=== PATIENT | female | born 1955 | race Caucasian/White ===

== ENCOUNTER 2022-08-27 13:04 | Emergency (ER) | payer MEDICARE ==
[2022-08-27] MEDS ORDERED: Sodium Chloride 0.9% 10 ML Syringe FLUSH PRN (13:37)
[2022-08-27 14:26] LABS: BASOPHILS ABSOLUTE AUTO 0.05 K/mm3 (0.01-0.08); BASOPHILS PERCENT AUTO 0.6 % (0.1-1.2); EOSINOPHILS ABSOLUTE AUTO 0.21 K/mm3 (0.04-0.36); EOSINOPHILS PERCENT AUTO 2.7 (0.7-5.8); HEMATOCRIT 38.7 % (34.1-44.9); HEMOGLOBIN 12.5 gm/dl (11.2-15.7); IMMATURE GRAN ABSOLUTE AUTO 0.01 K/mm3 (0.00-0.10); IMMATURE GRAN PERCENT AUTO 0.1 % (<=1.0); LYMPHOCYTES ABSOLUTE AUTO 2.76 K/mm3 (1.18-3.74); LYMPHOCYTES PERCENT AUTO 35.8 % (19.3-51.7); MEAN CORPUSCULAR HEMOGLOBIN 30.3 pg (25.6-32.2); MEAN CORPUSCULAR HGB CONC 32.3 g/dl (32.2-35.5); MEAN CORPUSCULAR VOLUME 93.9 fl (79.4-94.8); MEAN PLATELET VOLUME 8.8 fl (9.4-12.3); MONOCYTES ABSOLUTE AUTO 0.69 K/mm3 (0.24-0.36); MONOCYTES PERCENT AUTO 8.9 % (4.7-12.5); NEUTROPHILS PERCENT AUTO 51.9 % (34.0-71.1); PLATELET COUNT,PLT 278 K/mm3 (182-369); RED BLOOD CELL COUNT 4.12 M/mm3 (3.98-5.22); WHITE BLOOD CELL COUNT,WBC 7.72 K/mm3 (3.98-10.04)
[2022-08-27 14:55] LABS: A/G RATIO 1.1 (1-2); ALBUMIN 3.7 g/dl (3.4-5.0); ANION GAP 11.9 (5-15); BILIRUBIN TOTAL 0.5 mg/dL (0.2-1.0); BUN/CREATININE RATIO 22.5 (14-18); CREATININE 0.8 mg/dL (0.55-1.02); EST CRCL DRUG DOSING (CG) 52.9 mL/min; MAGNESIUM 2.1 mg/dL (1.8-2.4); POTASSIUM,K 3.9 mEq/L (3.5-5.1); PROTEIN TOTAL,TP 7.1 g/dl (6.4-8.2); TSH 0.497 uIU/mL (0.358-3.74)
== END 2022-08-27 16:10 | disposition home or self-care (01) ==
LOC: JD.ED 13:04
DX: R07.9 Chest pain, unspecified (principal); R51.9 Headache, unspecified; R00.2 Palpitations
CPT/HCPCS: 36415; 70450; 70450-26; 71045; 71045-26; 80053; 83735; 84443; 84484; 85025; 85379; 93005; 93246; 99285

== ENCOUNTER 2022-11-20 11:43 | Emergency (ER) | payer MEDICARE ==
[2022-11-20] MEDS ORDERED: Fluorescein 1 MG Ophth Strip EYEBOTH ONE (12:13)
[2022-11-20] MEDS ORDERED: Proparacaine 0.5% Ophth Soln 15 ML Bottle EYEBOTH ONE (12:15)
[2022-11-20] MEDS ORDERED: Ciprofloxacin 0.3% Ophth Soln 5 ML Bottle EYELF ONE (13:25)
== END 2022-11-20 13:50 | disposition home or self-care (01) ==
LOC: JD.ED 11:43
DX: S05.02XA Injury of conjunctiva and corneal abrasion without foreign body, left eye, initial encounter (principal); Z88.0 Allergy status to penicillin; X58.XXXA Exposure to other specified factors, initial encounter
CPT/HCPCS: 99283; A9270; J3490

== ENCOUNTER 2022-12-24 14:23 | Emergency (ER) | payer MEDICARE ==
[2022-12-24 15:43] LABS: BASOPHILS ABSOLUTE AUTO 0.1 K/mm3 (0.0-0.2); EOSINOPHILS ABSOLUTE AUTO 0.2 K/mm3 (0.0-0.4); EOSINOPHILS PERCENT AUTO 2.7 % (0.0-6.0); HEMATOCRIT 39.1 % (37.0-47.0); HEMOGLOBIN 13.2 gm/dl (12.0-16.0); IMMATURE GRAN ABSOLUTE AUTO 0.02 K/mm3 (0.00-0.05); IMMATURE GRAN PERCENT AUTO 0.3 % (0.0-0.4); LYMPHOCYTES ABSOLUTE AUTO 2.6 K/mm3 (1.0-4.8); LYMPHOCYTES PERCENT AUTO 43.7 % (24.0-44.0); MEAN CORPUSCULAR HEMOGLOBIN 31.1 pg (28.0-32.0); MEAN CORPUSCULAR HGB CONC 33.8 g/dl (32.0-36.0); MEAN PLATELET VOLUME 8.5 fl (9.4-12.3); MONOCYTES ABSOLUTE AUTO 0.6 K/mm3 (0.0-0.8); MONOCYTES PERCENT AUTO 9.4 % (0.0-8.0); NEUTROPHILS ABSOLUTE AUTO 2.6 K/mm3 (1.8-7.7); NEUTROPHILS PERCENT AUTO 42.9 % (41.0-71.0); PLATELET COUNT,PLT 258 K/mm3 (150-400); RED BLOOD CELL COUNT 4.25 M/mm3 (4.10-5.30); WHITE BLOOD CELL COUNT,WBC 5.95 K/mm3 (3.9-11.3)
[2022-12-24 16:04] LABS: INR 1.02; PROTHROMBIN TIME 10.9 SECONDS (9.7-12.0)
[2022-12-24 16:05] LABS: D-DIMER QUANTITATIVE 0.2 mg/L (0.19-0.50)
[2022-12-24 16:06] LABS: PTT,PARTIAL THROMBOPLSTIN TIME 23.1 SECONDS (21.7-31.4)
[2022-12-24 16:17] LABS: A/G RATIO 1.1 (1-2); ALBUMIN 3.7 g/dl (3.4-5.0); ANION GAP 11.2 (5-15); BILIRUBIN TOTAL 0.7 mg/dL (0.2-1.0); BUN/CREATININE RATIO 16.3 (14-18); CALCIUM 9.1 mg/dL (8.5-10.1); CREATININE 0.8 mg/dL (0.55-1.02); EST CRCL DRUG DOSING (CG) 63.09 mL/min; POTASSIUM,K 4.2 mEq/L (3.5-5.1); TSH 0.968 uIU/mL (0.358-3.74)
== END 2022-12-24 17:11 | disposition home or self-care (01) ==
LOC: JD.ED 14:23
DX: R42 Dizziness and giddiness (principal); E03.9 Hypothyroidism, unspecified; Z88.0 Allergy status to penicillin; Z79.899 Other long term (current) drug therapy
CPT/HCPCS: 36415; 71045; 71045-26; 80053; 83735; 84443; 84484; 85025; 85379; 85610; 85730; 93005; 93010; 99284; 99285